=== PATIENT | male | born 1940 | race Caucasian/White ===

== ENCOUNTER → 2017-06-18 | Outpatient (CLI) | payer BC ==
--- NOTE | 2017-07-02 13:03 | CODING QUERY NO DIAGNOSIS ---
TREATMENT RENDERED WITHOUT A DIAGNOSIS : 41 To promote full compliance with coding requirements relating to patient care, physician participation is requested in all cases of telegraph operator uncertainty. Please assist us with providing a diagnosis/symptom for the test(s) below: A diagnosis/symptom was not documented on your Order. A valid diagnosis/symptom is required to bill all insurances. Please remember that we are unable to code a diagnosis of rule out, probable, possible, questionable, or suspected. Tests that require a diagnosis: DOS: 06/17/17 * URINE CULTURE CLEAN DIAGNOSIS: Provider Signature: Date: Thank you Suzette Harp Health Information Management Once completed, please kindly fax back to [phone] For questions please call [phone]
== END | disposition home or self-care (01) ==
LOC: C.LABSPEC 10:32
PROVIDERS: ATTEND Family Medicine
DX: Z01.89 Encounter for other specified special examinations (principal)

== ENCOUNTER → 2017-07-26 | Outpatient (CLI) | payer BC ==
--- NOTE | 2017-07-26 11:35 | DIAGNOSTIC IMAGING REPORT ---
RENAL ULTRASOUND HISTORY: RECURRENT PYELONEPHRITIS COMPARISON: Renal ultrasound 02/08/2015. FINDINGS: Right kidney: 10.3 cm. No hydronephrosis. Mild to moderate cortical atrophy with increased cortical echotexture consistent with medical renal disease. This remains unchanged. A 2.5 x 2.2 x 2.0 cm cyst at the lower pole. Left kidney: 8.8 cm. No hydronephrosis. Mild to moderate cortical atrophy with increased cortical echotexture consistent with medical renal disease. A left extrarenal pelvis remains unchanged. A 9 mm lower pole cyst. Bladder: Only the right ureteral jet was identified at this time. The prostate is enlarged measuring 4.8 cm. Mild bladder trabeculation is again noted. Miscellaneous: Hepatic cysts are again noted with the largest measuring 5.3 cm. IMPRESSION: 1. No significant change in the mild to moderate cortical renal atrophy and increased cortical echotexture consistent with medical renal disease. 2. Bilateral renal and hepatic cysts are again noted. Electronically signed by: Richard Lui M.D. 07/26/2017 11:33 AM Dictated Date/Time: 07/26/2017 11:30 AM
== END | disposition home or self-care (01) ==
LOC: C.ULTR 10:44
PROVIDERS: ATTEND Family Medicine
DX: N12 Tubulo-interstitial nephritis, not specified as acute or chronic (principal)

== ENCOUNTER 2018-12-02 10:10 | Inpatient (IN) ==
[2018-12-02] MEDS ORDERED: SODIUM CHLORIDE 0.9% 1000ML 1,000 ML IV ONE (10:20)
--- NOTE | 2018-12-02 10:41 | XRay Report ---
XR chest 1V portable CLINICAL HISTORY: Atypical chest pain COMPARISON STUDY: No previous studies for comparison. FINDINGS: The heart is at the upper limits of normal in size. There is no failure. There is no focal pulmonary consolidation. There are no pleural effusions. Slight prominence of the right paratracheal soft tissues, likely is secondary to ectatic/tortuous great vessels[ IMPRESSION: No active disease in the chest. Electronically signed by: Say Smalls M.D. 12/02/2018 10:39 AM
[2018-12-02 10:45] LABS: Basophils # (auto) 0.02 K/uL (0-0.2); Basophils % (auto) 0.3 %; Eosinophils # (auto) 0.17 K/uL (0-0.5); Hematocrit (blood only) 46.7 % (42-52); Hemoglobin 16.6 g/dL (14.0-18.0); Immature Granulocytes # (auto) 0.02 K/uL (0.00-0.02); Immature Granulocytes % (auto) 0.3 %; Lymphocytes # (auto) 1.21 K/uL (1.2-3.4); Lymphocytes % (auto) 21.1 %; Mean Corpuscular Hgb Conc 35.5 g/dL (32-36); Mean Corpuscular Volume 87.9 fL (80-100); Monocytes # (auto) 0.33 K/uL (0.11-0.59); Monocytes % (auto) 5.8 %; Neutrophils # (auto) 3.98 K/uL (1.4-6.5); Neutrophils % (auto) 69.5 %; Platelet Count 189 K/uL (130-400); RDW Standard Deviation 41.2 fL (36.4-46.3); Red Blood Count 5.31 M/uL (4.7-6.1); White Blood Count 5.73 K/uL (4.8-10.8)
[2018-12-02 10:55] LABS: Prothrombin Time 10.5 Seconds (9.0-12.0)
[2018-12-02 11:04] LABS: Albumin Level 3.9 gm/dl (3.4-5.0); BUN Creatinine Ratio 12.4 (10-20); Calcium 9.2 mg/dl (8.5-10.1); Creatinine Clr Calc Pharmacy 52.7 ml/min; Est GFR (African American) 67.9; Est GFR (Non-African American) 58.6; Magnesium 2.3 mg/dl (1.8-2.4)
[2018-12-02 11:09] LABS: Albumin Globulin Ratio 1.2 (0.9-2); Bilirubin,Total 0.9 mg/dl (0.2-1); Globulin 3.2 gm/dl (2.5-4.0); Phosphorus 2.2 mg/dl (2.5-4.9); Total Protein 7.1 gm/dl (6.4-8.2); Troponin I 0.027 ng/ml (0-0.045)
--- NOTE | 2018-12-02 11:46 | CT Scan Report ---
CT SCAN OF THE BRAIN WITHOUT IV CONTRAST CLINICAL HISTORY: Memory loss. COMPARISON STUDY: No priors. TECHNIQUE: Unenhanced axial CT scan of the brain is performed from the vertex to the skull base. A do se lowering technique was utilized adhering to the principles of ALARA. CT DOSE: 691.05 mGy.cm FINDINGS: Brain parenchyma: There are age-related involutional changes noting minimal subcortical and perivent ricular microangiopathic change. There is no hemorrhage, mass effect, or evidence of acute territoria l ischemia by CT criteria. Zuniga-white matter differentiation is preserved. No extra-axial fluid colle ction is seen. Ventricles, sulci, cisterns: Prominent secondary to involutional change. Intracranial vasculature: There is atherosclerotic calcification of the cavernous carotid and vertebr al arteries. Calvarium: Unremarkable. Sinuses and mastoids: There is trace mucosal thickening within the maxillary antra, as well as the fr ontal and ethmoid sinuses. Secretions are noted in the left sphenoid sinus. The mastoid air cells are well pneumatized. Orbits: The bony orbits are grossly intact. IMPRESSION: There is no hemorrhage, mass effect, or evidence of acute territorial ischemia by CT loretta bhat. Electronically signed by: Kobe Smart M.D. 12/02/2018 11:45 AM
[2018-12-02] MEDS ORDERED: ASPIRIN CHEW 324 MG PO STA (13:02)
[2018-12-02] MEDS ORDERED: Heparin IV Low Dose *NO* Bolus IV ONE (13:03)
[2018-12-02 13:20] LABS: Partial Thromboplastin Time 27.5 Seconds (21.0-31.0)
[2018-12-02] MEDS ORDERED: HEPARIN 25000 UNIT/500 ML D5W IV ONE (13:53)
--- NOTE | 2018-12-02 15:02 | History & Physical Report ---
Date of Service December 02, 2018 Assessment & Plan (1) Chest pain: Patient with exertional chest discomfort, relieved with rest. Elevated troponin at 0.137, EKG with no acute changes. Symptoms sound most consistent to stable angina. -Observation to PCU -Heparin gtt, standard -Trend troponin q 6 hours -Check 2D echocardiogram -Cardiology consultation - appreciate assistance with this case -Check Lipids and A1C for risk -NPO after midnight for possible cath -Nitro and Morphine PRN -Aspirin 81mg po daily Present on Admission?: Yes (2) BPH (benign prostatic hyperplasia): Chronic. No symptoms at present -Continue Tamsulosin and Dutasteride F/E/N - Heplock. Electrolytes WNL. AHA diet for dinner and NPO after midnight for possible cath Ppx - Heparin gtt as above Code - Full per discussion with patient. No alf heroics desired Dispo - Observation to PCU History of Present Illness Chief Complaint: chest pain Primary Care Provider: Warner Turner Raul Galvan is a pleasant 78yo C male with history of BPH presenting with chest pain. Patient is quite active, frequently rides his bike and goes for brisk walks. He developed CP 4-5 days ago which occurred with exertion. Pain is described as substernal aching/soreness, 2-3/10 in severity and relieved with rest. Discomfort is nonradiating, no associated nausea/vomiting/dizziness/diaphoresis/palpitations but does feel "woozy". No symptoms at rest but discomfort has been occurring with less exertion than before, he has limited his activity as a result. No prior history of CAD. No known coronary risk factors or family history. No prior stress testing or cardiac cath ER Course: ASA 324, Heparin gtt, NSS Allergies Allergy/AdvReac Type Severity Reaction Status Date / Time No Known Allergies Allergy Unverified 12/02/18 11:10 Home Medications Home Medications Medication Instructions Recorded Confirmed Type cholecalciferol (vitamin D3) 0 unit PO PM 12/02/18 12/02/18 History [Vitamin D3] cyanocobalamin (vitamin B-12) 0 mcg PO PM 12/02/18 12/02/18 History [Vitamin B-12] dutasteride 0.5 mg PO PM 12/02/18 12/02/18 History tamsulosin 0.4 mg PO PM 12/02/18 12/02/18 History vit A,C and R-sbiott-njifioez 1 tab PO PM 12/02/18 12/02/18 History [Ocuvite with Lutein] Past Med/Surg History Medical History Pyelonephritis (Chronic) Dysuria (Resolved) BPH (benign prostatic hyperplasia) History of wisdom tooth extraction Lyme disease Family History Other Family history non-contributory Social History Preferred Language: Palestinian Communication Ability: Effective Freight Associate Required: No Beliefs That Will Affect Care: None Current Living Situation: Spouse Other Information That Helps Us Care for You: No Feels Safe at Home: Yes Safety Concerns: Feels Safe At This Time Smoking Status: Former smoker Hx Alcohol Use: Yes Alcohol type: beer, wine and hard liquor Hx Substance Use: No Review of Systems Review of Systems: All systems reviewed & are unremarkable except as noted in HPI & below Physical Exam Physical Exam: General: patient resting comfortably, NAD, non-toxic in appearance, AA&O x 4 Skin: warm, dry, intact, no rashes or lesions HEENT: NC/AT, PERRL, EOMI, anicteric sclera, conjunctiva without injection, external ear normal to inspection and nontender, nares patent, moist mucus membranes, dentition intact, no oropharyngeal lesions, neck supple, trachea midline, no LAD, no thyromegaly, no JVD Heart: +S1/S2, regular, no m/r/g, mild reproducible pain with palpation of right rib Lungs: equal air entry bilaterally, no rales/rhonchi/wheezes Abd: +BS, soft, NT/ND, no masses/organomegaly/ascites Ext: warm, 2+ pulses in UE/LE bilaterally, no clubbing/cyanosis or edema Neuro: nonfocal, patient AA&O x 4, speech intact, no facial droop, moving all extremities on command with equal strength 5/5 Results & Data Vital Signs (Past 12 Hours) Vital Signs Temp Pulse Pulse Resp BP BP Pulse Ox 12/02/18 14:32 62 18 141/73 H 98 12/02/18 12:36 53 L 20 136/47 L 97 12/02/18 11:42 69 18 150/83 H 96 12/02/18 10:33 96 12/02/18 10:17 36.7 C 86 18 150/102 H 99 Laboratory Results Lab Results 12/02/18 12/02/1819 Range/Units 10:30 10:30 10:30 WBC 5.73 (4.8-10.8) K/uL RBC 5.31 (4.7-6.1) M/uL Hgb 16.6 (14.0-18.0) g/dL Hct 46.7 (42-52) % MCV 87.9 (80-100) fL MCH 31.3 (25-34) pg MCHC 35.5 (32-36) g/dL RDW Std Deviation 41.2 (36.4-46.3) fL RDW Coeff of Jessica 13.0 (11.5-14.5) % Plt Count 189 (130-400) K/uL MPV 11.0 H (7.4-10.4) fL Immature Gran % (Auto) 0.3 % Neut % (Auto) 69.5 % Lymph % (Auto) 21.1 % Spalding % (Auto) 5.8 % Eos % (Auto) 3.0 % Baso % (Auto) 0.3 % Immature Gran # (Auto) 0.02 (0.00-0.02) K/uL Neut # (Auto) 3.98 (1.4-6.5) K/uL Lymph # (Auto) 1.21 (1.2-3.4) K/uL Spalding # (Auto) 0.33 (0.11-0.59) K/uL Eos # (Auto) 0.17 (0-0.5) K/uL Baso # (Auto) 0.02 (0-0.2) K/uL PT 10.5 (9.0-12.0) Seconds INR 1.0 (0.9-1.1) APTT (21.0-31.0) Seconds PTT Ratio Sodium 138 (136-145) mmol/L Potassium 4.0 (3.5-5.1) mmol/L Chloride 106 (98-107) mmol/L Carbon Dioxide 27 (21-32) mmol/L Anion Gap 5.0 (3-11) BUN 15 (7-18) mg/dl Creatinine 1.19 (0.6-1.4) mg/dl Est Cr Clr Drug Dosing 52.7 ml/min Est GFR ( Amer) 67.9 Est GFR (Non-Af Amer) 58.6 BUN/Creatinine Ratio 12.4 (10-20) Glucose 103 H (70-99) mg/dl Calcium 9.2 (8.5-10.1) mg/dl Phosphorus 2.2 L (2.5-4.9) mg/dl Magnesium 2.3 (1.8-2.4) mg/dl Total Bilirubin 0.9 (0.2-1) mg/dl AST 14 L (15-37) U/L ALT 21 (12-78) U/L Alkaline Phosphatase 61 (45-117) U/L Troponin I 0.027 (0-0.045) ng/ml Total Protein 7.1 (6.4-8.2) gm/dl Albumin 3.9 (3.4-5.0) gm/dl Globulin 3.2 (2.5-4.0) gm/dl Albumin/Globulin Ratio 1.2 (0.9-2) Lipase 109 (73-393) U/L 12/02/18 12/02/18 12/02/18 Range/Units 10:30 12:01 18:51 WBC (4.8-10.8) K/uL RBC (4.7-6.1) M/uL Hgb (14.0-18.0) g/dL Hct (42-52) % MCV (80-100) fL MCH (25-34) pg MCHC (32-36) g/dL RDW Std Deviation (36.4-46.3) fL RDW Coeff of Jessica (11.5-14.5) % Plt Count (130-400) K/uL MPV (7.4-10.4) fL Immature Gran % (Auto) % Neut % (Auto) % Lymph % (Auto) % Spalding % (Auto) % Eos % (Auto) % Baso % (Auto) % Immature Gran # (Auto) (0.00-0.02) K/uL Neut # (Auto) (1.4-6.5) K/uL Lymph # (Auto) (1.2-3.4) K/uL Spalding # (Auto) (0.11-0.59) K/uL Eos # (Auto) (0-0.5) K/uL Baso # (Auto) (0-0.2) K/uL PT (9.0-12.0) Seconds INR (0.9-1.1) APTT 27.5 (21.0-31.0) Seconds PTT Ratio 1.0 Sodium (136-145) mmol/L Potassium (3.5-5.1) mmol/L Chloride (98-107) mmol/L Carbon Dioxide (21-32) mmol/L Anion Gap (3-11) BUN (7-18) mg/dl Creatinine (0.6-1.4) mg/dl Est Cr Clr Drug Dosing ml/min Est GFR ( Amer) Est GFR (Non-Af Amer) BUN/Creatinine Ratio (10-20) Glucose (70-99) mg/dl Calcium (8.5-10.1) mg/dl Phosphorus (2.5-4.9) mg/dl Magnesium (1.8-2.4) mg/dl Total Bilirubin (0.2-1) mg/dl AST (15-37) U/L ALT (12-78) U/L Alkaline Phosphatase (45-117) U/L Troponin I 0.137 H* 0.389 H* (0-0.045) ng/ml Total Protein (6.4-8.2) gm/dl Albumin (3.4-5.0) gm/dl Globulin (2.5-4.0) gm/dl Albumin/Globulin Ratio (0.9-2) Lipase (73-393) U/L Diagnostic Findings CT SCAN OF THE BRAIN WITHOUT IV CONTRAST CLINICAL HISTORY: Memory loss. COMPARISON STUDY: No priors. TECHNIQUE: Unenhanced axial CT scan of the brain is performed from the vertex to the skull base. A dose lowering technique was utilized adhering to the principles of ALARA. CT DOSE: 691.05 mGy.cm FINDINGS: Brain parenchyma: There are age-related involutional changes noting minimal subcortical and periventricular microangiopathic change. There is no hemorrhage, mass effect, or evidence of acute territorial ischemia by CT criteria. Zuniga- white matter differentiation is preserved. No extra-axial fluid collection is seen. Ventricles, sulci, cisterns: Prominent secondary to involutional change. Intracranial vasculature: There is atherosclerotic calcification of the cavernous carotid and vertebral arteries. Calvarium: Unremarkable. Sinuses and mastoids: There is trace mucosal thickening within the maxillary antra, as well as the frontal and ethmoid sinuses. Secretions are noted in the left sphenoid sinus. The mastoid air cells are well pneumatized. Orbits: The bony orbits are grossly intact. IMPRESSION: There is no hemorrhage, mass effect, or evidence of acute territorial ischemia by CT criteria. Electronically signed by: Kobe Smart M.D. 12/02/2018 11:45 AM Dictated: 12/02/18 1142 Transcribed: 12/02/18 114 XR chest 1V portable CLINICAL HISTORY: Atypical chest pain COMPARISON STUDY: No previous studies for comparison. FINDINGS: The heart is at the upper limits of normal in size. There is no failure. There is no focal pulmonary consolidation. There are no pleural effusions. Slight prominence of the right paratracheal soft tissues, likely is secondary to ectatic/tortuous great vessels[ IMPRESSION: No active disease in the chest. Electronically signed by: Say Smalls M.D. 12/02/2018 10:39 AM Dictated: 12/02/18 1039 Transcribed: 12/02/18 1039 2D echo with normal LV function EF of 60-65%, Grade I diastolic dysfunction, Mild AR, normal RVSP, mild aortic root dilation ECG Additional Comments: The study shows SR with 1st degree AV block, KU=722, QRS=88, AXp=670, no acute ischemic changes Code Status & VTE Plan Code Status FULL VTE Prophylaxis Plan VTE Prophylaxis will be ordered: Yes PG Care Time/CCT Total # of Minutes Spent Total Time Spent with Patient: Total time spent is greater than 50% in coordination of care (as documented) at patient's floor/unit and/or counseling patient:
[2018-12-02] MEDS ORDERED: ONDANSETRON INJ 2 MG/ML 2 ML VIAL IV PRN (16:46)
[2018-12-02] MEDS ORDERED: NITROGLYCERIN SL 0.4 MG/TAB TAB SL PRN (16:46)
[2018-12-02] MEDS ORDERED: MoRPHine SULFATE 2 MG/ML CARP IV PRN (16:46)
[2018-12-02] MEDS ORDERED: Heparin IV Standard *NO* Bolus IV ONE (16:46)
[2018-12-02] MEDS: Heparin Adult LOW DOSE Wt-Based Dextrose 5% 25,000 units/500 mL IV SCH (17:13)
--- NOTE | 2018-12-02 19:52 | Emergency Department Note ---
Entered by Toña Romo acting as a scribe for History of Present Illness General Chief complaint: Chest Pain Stated complaint: CHEST PAIN ON EXERCISE Time Seen by Provider: 12/02/18 10:19 Source: patient and family History of Present Illness Provider complaint: chest pain Onset (ago): week(s) 2 Location: chest ("superficial") Pain Consistency: + intermittent Maximum Pain Intensity: 0 Exacerbated By: + movement (brisk walks, riding stationary bike) Associated symptoms: + confusion and + other (depression); no cough and no fever/chills The patient is a 78 year old male who presents to the ED with complaints of intermittent chest pain starting 2 weeks ago. The patient states that the chest pain feels superficial on his pectoral muscles, not internal. Reports associated SOB and sweating. The patient states that the pain occurs when he takes brisk walks or rides the stationary bike. The patient notes that he is not in any current pain. Per , the patient had Lyme disease 1 month ago which has caused him to become more confused and depressed than usual. The patient denies fever, chills and cough. Home Medications Home Medications Medication Instructions Recorded Confirmed Type cholecalciferol (vitamin D3) 0 unit PO PM 12/02/18 12/02/18 History [Vitamin D3] cyanocobalamin (vitamin B-12) 0 mcg PO PM 12/02/18 12/02/18 History [Vitamin B-12] dutasteride 0.5 mg PO PM 12/02/18 12/02/18 History tamsulosin 0.4 mg PO PM 12/02/18 12/02/18 History vit A,C and A-myffjl-zoswhmun 1 tab PO PM 12/02/18 12/02/18 History [Ocuvite with Lutein] Allergies Allergy/AdvReac Type Severity Reaction Status Date / Time No Known Allergies Allergy Unverified 12/02/18 11:10 Past Med/Surg History Medical History Pyelonephritis (Chronic) Dysuria (Resolved) BPH (benign prostatic hyperplasia) History of wisdom tooth extraction Lyme disease Family History Other Family history non-contributory Social History Preferred Language: [place] Communication Ability: Effective 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 and A total of 10 systems reviewed and were otherwise negative Physical Exam Vital Signs Vital Signs - 24 hr 12/02/18 10:17 12/02/18 10:24 12/02/18 10:26 Temperature 36.7 C Temperature Source Oral Sepsis Recent Fever Within 48 Hours No Sepsis Action Taken by Nursing No Action Required Pulse Rate 86 72 77 Pulse Rate [Left Finger] Pulse Rate from SpO2 Sensor 75 Respiratory Rate 18 22 15 Blood Pressure 150/102 H 161/88 H Blood Pressure [Left Arm] Blood Pressure Mean 118 112 Blood Pressure Mean [Left Arm] Blood Pressure Position Sitting Pulse Oximetry 99 98 Oxygen Delivery Method Room Air 12/02/18 10:30 12/02/18 10:31 12/02/18 10:33 Temperature Temperature Source Sepsis Recent Fever Within 48 Hours Sepsis Action Taken by Nursing Pulse Rate 60 65 Pulse Rate [Left Finger] Pulse Rate from SpO2 Sensor 59 L 69 Respiratory Rate 17 16 Blood Pressure 152/78 H Blood Pressure [Left Arm] Blood Pressure Mean 102 Blood Pressure Mean [Left Arm] Blood Pressure Position Pulse Oximetry 95 96 96 Oxygen Delivery Method Room Air 12/02/18 10:40 12/02/18 10:50 12/02/18 11:00 Temperature Temperature Source Sepsis Recent Fever Within 48 Hours Sepsis Action Taken by Nursing Pulse Rate 77 57 L 58 L Pulse Rate [Left Finger] Pulse Rate from SpO2 Sensor 77 58 L 59 L Respiratory Rate 23 16 19 Blood Pressure 147/58 H Blood Pressure [Left Arm] Blood Pressure Mean 87 Blood Pressure Mean [Left Arm] Blood Pressure Position Pulse Oximetry 98 99 99 Oxygen Delivery Method 12/02/18 11:01 12/02/18 11:18 12/02/18 11:20 Temperature Temperature Source Sepsis Recent Fever Within 48 Hours Sepsis Action Taken by Nursing Pulse Rate 57 L 59 L 67 Pulse Rate [Left Finger] Pulse Rate from SpO2 Sensor 57 L 59 L 67 Respiratory Rate 18 20 16 Blood Pressure Blood Pressure [Left Arm] Blood Pressure Mean Blood Pressure Mean [Left Arm] Blood Pressure Position Pulse Oximetry 99 98 97 Oxygen Delivery Method 12/02/18 11:37 12/02/18 11:38 12/02/18 11:40 Temperature Temperature Source Sepsis Recent Fever Within 48 Hours Sepsis Action Taken by Nursing Pulse Rate 71 77 56 L Pulse Rate [Left Finger] Pulse Rate from SpO2 Sensor 71 74 57 L Respiratory Rate 23 20 16 Blood Pressure 150/83 H Blood Pressure [Left Arm] Blood Pressure Mean 105 Blood Pressure Mean [Left Arm] Blood Pressure Position Pulse Oximetry 96 96 98 Oxygen Delivery Method 12/02/18 11:42 12/02/18 11:50 12/02/18 12:00 Temperature Temperature Source Sepsis Recent Fever Within 48 Hours Sepsis Action Taken by Nursing Pulse Rate 55 L 53 L Pulse Rate [Left Finger] 69 Pulse Rate from SpO2 Sensor 54 L 53 L Respiratory Rate 18 20 15 Blood Pressure Blood Pressure [Left Arm] 150/83 H Blood Pressure Mean Blood Pressure Mean [Left Arm] 105 Blood Pressure Position Pulse Oximetry 96 97 96 Oxygen Delivery Method Room Air 12/02/18 12:01 12/02/18 12:10 12/02/18 12:20 Temperature Temperature Source Sepsis Recent Fever Within 48 Hours Sepsis Action Taken by Nursing Pulse Rate 62 66 60 Pulse Rate [Left Finger] Pulse Rate from SpO2 Sensor 59 L 63 57 L Respiratory Rate 18 16 20 Blood Pressure 131/68 Blood Pressure [Left Arm] Blood Pressure Mean 89 Blood Pressure Mean [Left Arm] Blood Pressure Position Pulse Oximetry 97 97 97 Oxygen Delivery Method 12/02/18 12:33 12/02/18 12:35 12/02/18 12:36 Temperature Temperature Source Sepsis Recent Fever Within 48 Hours Sepsis Action Taken by Nursing Pulse Rate 53 L 52 L Pulse Rate [Left Finger] 53 L Pulse Rate from SpO2 Sensor 54 L Respiratory Rate 13 16 20 Blood Pressure 136/47 L Blood Pressure [Left Arm] 136/47 L Blood Pressure Mean 76 Blood Pressure Mean [Left Arm] 76 Blood Pressure Position Pulse Oximetry 97 97 Oxygen Delivery Method Room Air 12/02/18 12:40 12/02/18 12:50 12/02/18 13:00 Temperature Temperature Source Sepsis Recent Fever Within 48 Hours Sepsis Action Taken by Nursing Pulse Rate 56 L 55 L 60 Pulse Rate [Left Finger] Pulse Rate from SpO2 Sensor 55 L 54 L 58 L Respiratory Rate 12 13 21 Blood Pressure 134/76 Blood Pressure [Left Arm] Blood Pressure Mean 95 Blood Pressure Mean [Left Arm] Blood Pressure Position Pulse Oximetry 96 97 98 Oxygen Delivery Method 12/02/18 13:01 12/02/18 13:10 12/02/18 13:20 Temperature Temperature Source Sepsis Recent Fever Within 48 Hours Sepsis Action Taken by Nursing Pulse Rate 53 L 60 64 Pulse Rate [Left Finger] Pulse Rate from SpO2 Sensor 55 L 63 62 Respiratory Rate 16 14 18 Blood Pressure Blood Pressure [Left Arm] Blood Pressure Mean Blood Pressure Mean [Left Arm] Blood Pressure Position Pulse Oximetry 98 98 97 Oxygen Delivery Method 12/02/18 13:30 12/02/18 13:31 12/02/18 14:30 Temperature Temperature Source Sepsis Recent Fever Within 48 Hours Sepsis Action Taken by Nursing Pulse Rate 55 L 58 L Pulse Rate [Left Finger] Pulse Rate from SpO2 Sensor 55 L 58 L Respiratory Rate 16 18 Blood Pressure 142/72 H 141/73 H Blood Pressure [Left Arm] Blood Pressure Mean 95 95 Blood Pressure Mean [Left Arm] Blood Pressure Position Pulse Oximetry 98 97 Oxygen Delivery Method 12/02/18 14:31 12/02/18 14:32 12/02/18 14:40 Temperature Temperature Source Sepsis Recent Fever Within 48 Hours Sepsis Action Taken by Nursing Pulse Rate 60 62 Pulse Rate [Left Finger] 62 Pulse Rate from SpO2 Sensor 61 63 Respiratory Rate 12 18 16 Blood Pressure Blood Pressure [Left Arm] 141/73 H Blood Pressure Mean Blood Pressure Mean [Left Arm] 95 Blood Pressure Position Pulse Oximetry 98 98 99 Oxygen Delivery Method Room Air 12/02/18 14:50 Temperature Temperature Source Sepsis Recent Fever Within 48 Hours Sepsis Action Taken by Nursing Pulse Rate 60 Pulse Rate [Left Finger] Pulse Rate from SpO2 Sensor 56 L Respiratory Rate 15 Blood Pressure Blood Pressure [Left Arm] Blood Pressure Mean Blood Pressure Mean [Left Arm] Blood Pressure Position Pulse Oximetry 99 Oxygen Delivery Method GENERAL: Awake, alert, well-appearing, in no distress HENT: Normocephalic, atraumatic. Oropharynx unremarkable. Mucous membranes dry. EYES: Normal conjunctiva. Sclera non-icteric. NECK: Supple. No nuchal rigidity. FROM. No JVD. RESPIRATORY: Clear to auscultation bilaterally. CARDIAC: Regular rate, normal rhythm. Extremities warm and well perfused. Pulses equal. ABDOMEN: Soft, non-distended. No tenderness to palpation. No rebound or guarding. No masses. RECTAL: Deferred. MUSCULOSKELETAL: Chest examination reveals no tenderness. The back is symmetrical on inspection without obvious abnormality. There is no CVA tenderness to palpation. No joint edema. LOWER EXTREMITIES: Calves are equal size bilaterally and non-tender. No edema. No discoloration. NEURO: Normal sensorium. No sensory or motor deficits noted. SKIN: No rash or jaundice noted. Course 1037: Past medical records reviewed. The patient was evaluated in room B12. A complete history and physical exam was performed. 1246: I discussed the patient's case with MURRAY Solitario. He recommends an echo. 1302: I discussed the patient's case with Dr. Singh [facility] Hospitalist. She will manage the patient for further management. Consultations Consultation #1: I discussed the patient's case with MURRAY Solitario. He recommends an echo. Time: 12:46 Consultation #2: I discussed the patient's case with Dr. Singh [facility] Hospitalist. She will evaluate the patient for further management. Time: 13:02 Administered Medications Heparin Sodium/Dextrose (Heparin Sodium/Dextrose) 25,000 units in 500 mls @ 17 mls/hr IV .Q24H AMAURI; Protocol Stop: 01/01/19 16:59 Last Titration: 12/02/18 21:39 Dose: 1,000 units/hr, 20 mls/hr Documented by: [id number] Cosigned by: [id number] Admin: 12/02/18 17:13 Dose: 850 units/hr, 17 mls/hr Documented by: [id number] Cosigned by: [id number] Tamsulosin HCl (Flomax) 0.4 mg PO PM AMAURI Stop: 01/01/19 20:59 Last Admin: 12/02/18 20:35 Dose: Not Given Documented by: [id number] Discontinued Medications Aspirin (Aspirin) 324 mg PO NOW STA Stop: 12/02/18 13:03 Last Admin: 12/02/18 14:29 Dose: 324 mg Documented by: [id number] Heparin Sodium/Dextrose () 1 ea IV ONE ONE; Protocol Stop: 12/02/18 13:04 Last Admin: 12/02/18 14:31 Dose: Not Given Documented by: [id number] Heparin Sodium/Dextrose (Heparin Sodium/Dextrose) Confirm Administered Dose 25,000 units IV .STK-MED ONE Stop: 12/02/18 13:54 Last Admin: 12/02/18 14:28 Dose: 850 units Documented by: [id number] Cosigned by: [id number] Sodium Chloride (Nss 1000ml) 1,000 mls @ 999 mls/hr IV .Q1H1M ONE Stop: 12/02/18 11:20 Last Infusion: 12/02/18 11:23 Dose: 0 mls/hr Documented by: [id number] Admin: 12/02/18 10:38 Dose: 999 mls/hr Documented by: [id number] Medical Decision Making Differential Diagnosis Differential diagnosis: Etiologies such as shingles, musculoskeletal pain, pericarditis, myocarditis, cardiac ischemia, pericardial tamponade, pneumonia, pneumothorax, pleural effusion, hemothorax, pleurisy, aortic pathology, pulmonary embolism, intra- abdominal process, as well as others were considered. Medical Records Attestation: I reviewed the patient's medical records. Home Medications Current Medication List: was personally reviewed by me Laboratory Data Attestation: I reviewed the patient's lab results. Result diagrams: 12/02/18 10:30 12/02/18 10:30 Lab Results 12/02/18 12/02/18 12/02/18 Range/Units 10:30 10:30 10:30 WBC 5.73 (4.8-10.8) K/uL RBC 5.31 (4.7-6.1) M/uL Hgb 16.6 (14.0-18.0) g/dL Hct 46.7 (42-52) % MCV 87.9 (80-100) fL MCH 31.3 (25-34) pg MCHC 35.5 (32-36) g/dL RDW Std Deviation 41.2 (36.4-46.3) fL RDW Coeff of Jessica 13.0 (11.5-14.5) % Plt Count 189 (130-400) K/uL MPV 11.0 H (7.4-10.4) fL Immature Gran % (Auto) 0.3 % Neut % (Auto) 69.5 % Lymph % (Auto) 21.1 % [place] % (Auto) 5.8 % Eos % (Auto) 3.0 % Baso % (Auto) 0.3 % Immature Gran # (Auto) 0.02 (0.00-0.02) K/uL Neut # (Auto) 3.98 (1.4-6.5) K/uL Lymph # (Auto) 1.21 (1.2-3.4) K/uL [place] # (Auto) 0.33 (0.11-0.59) K/uL Eos # (Auto) 0.17 (0-0.5) K/uL Baso # (Auto) 0.02 (0-0.2) K/uL PT 10.5 (9.0-12.0) Seconds INR 1.0 (0.9-1.1) APTT (21.0-31.0) Seconds PTT Ratio Sodium 138 (136-145) mmol/L Potassium 4.0 (3.5-5.1) mmol/L Chloride 106 (98-107) mmol/L Carbon Dioxide 27 (21-32) mmol/L Anion Gap 5.0 (3-11) BUN 15 (7-18) mg/dl Creatinine 1.19 (0.6-1.4) mg/dl Est Cr Clr Drug Dosing 52.7 ml/min Est GFR ( Amer) 67.9 Est GFR (Non-Af Amer) 58.6 BUN/Creatinine Ratio 12.4 (10-20) Glucose 103 H (70-99) mg/dl Calcium 9.2 (8.5-10.1) mg/dl Phosphorus 2.2 L (2.5-4.9) mg/dl Magnesium 2.3 (1.8-2.4) mg/dl Total Bilirubin 0.9 (0.2-1) mg/dl AST 14 L (15-37) U/L ALT 21 (12-78) U/L Alkaline Phosphatase 61 (45-117) U/L Troponin I 0.027 (0-0.045) ng/ml Total Protein 7.1 (6.4-8.2) gm/dl Albumin 3.9 (3.4-5.0) gm/dl Globulin 3.2 (2.5-4.0) gm/dl Albumin/Globulin Ratio 1.2 (0.9-2) Lipase 109 (73-393) U/L 12/02/18 12/02/18 Range/Units 10:30 12:01 WBC (4.8-10.8) K/uL RBC (4.7-6.1) M/uL Hgb (14.0-18.0) g/dL Hct (42-52) % MCV (80-100) fL MCH (25-34) pg MCHC (32-36) g/dL RDW Std Deviation (36.4-46.3) fL RDW Coeff of Jessica (11.5-14.5) % Plt Count (130-400) K/uL MPV (7.4-10.4) fL Immature Gran % (Auto) % Neut % (Auto) % Lymph % (Auto) % [place] % (Auto) % Eos % (Auto) % Baso % (Auto) % Immature Gran # (Auto) (0.00-0.02) K/uL Neut # (Auto) (1.4-6.5) K/uL Lymph # (Auto) (1.2-3.4) K/uL [place] # (Auto) (0.11-0.59) K/uL Eos # (Auto) (0-0.5) K/uL Baso # (Auto) (0-0.2) K/uL PT (9.0-12.0) Seconds INR (0.9-1.1) APTT 27.5 (21.0-31.0) Seconds PTT Ratio 1.0 Sodium (136-145) mmol/L Potassium (3.5-5.1) mmol/L Chloride (98-107) mmol/L Carbon Dioxide (21-32) mmol/L Anion Gap (3-11) BUN (7-18) mg/dl Creatinine (0.6-1.4) mg/dl Est Cr Clr Drug Dosing ml/min Est GFR ( Amer) Est GFR (Non-Af Amer) BUN/Creatinine Ratio (10-20) Glucose (70-99) mg/dl Calcium (8.5-10.1) mg/dl Phosphorus (2.5-4.9) mg/dl Magnesium (1.8-2.4) mg/dl Total Bilirubin (0.2-1) mg/dl AST (15-37) U/L ALT (12-78) U/L Alkaline Phosphatase (45-117) U/L Troponin I 0.137 H* (0-0.045) ng/ml Total Protein (6.4-8.2) gm/dl Albumin (3.4-5.0) gm/dl Globulin (2.5-4.0) gm/dl Albumin/Globulin Ratio (0.9-2) Lipase (73-393) U/L Imaging Data Radiologist's Impression: Radiology results as stated below per my review and the radiologist's interpretation: XR chest 1V portable CLINICAL HISTORY: Atypical chest pain COMPARISON STUDY: No previous studies for comparison. FINDINGS: The heart is at the upper limits of normal in size. There is no failure. There is no focal pulmonary consolidation. There are no pleural effusions. Slight prominence of the right paratracheal soft tissues, likely is secondary to ectatic/tortuous great vessels[ IMPRESSION: No active disease in the chest. Electronically signed by: Say Smalls M.D. 12/02/2018 10:[address] SCAN OF THE BRAIN WITHOUT IV CONTRAST CLINICAL HISTORY: Memory loss. COMPARISON STUDY: No priors. TECHNIQUE: Unenhanced axial CT scan of the brain is performed from the vertex to the skull base. A dose lowering technique was utilized adhering to the principles of ALARA. CT DOSE: 691.05 mGy.cm FINDINGS: Brain parenchyma: There are age-related involutional changes noting minimal subcortical and periventricular microangiopathic change. There is no hemorrhage, mass effect, or evidence of acute territorial ischemia by CT criteria. Zuniga- white matter differentiation is preserved. No extra-axial fluid collection is s een. Ventricles, sulci, cisterns: Prominent secondary to involutional change. Intracranial vasculature: There is atherosclerotic calcification of the cavernous carotid and vertebral arteries. Calvarium: Unremarkable. Sinuses and mastoids: There is trace mucosal thickening within the maxillary an tra, as well as the frontal and ethmoid sinuses. Secretions are noted in the left sphenoid sinus. The mastoid air cells are well pneumatized. Orbits: The bony orbits are grossly intact. IMPRESSION: There is no hemorrhage, mass effect, or evidence of acute territorial ischemia by CT criteria. Electronically signed by: Kobe Smart M.D. 12/02/2018 11:45 AM ECG Data Attestation: I personally reviewed and interpreted this ECG as follows: Indication: chest pain Rate (beats per minute): 73 Rhythm: sinus rhythm Findings: + other (LVH), + 1st degree AV block and + nonspecific-ST abn Blood Pressure Blood Pressure Findings: Elevated blood pressure Blood Pressure Disposition: further management by hospitalist LALO Snow The patient is a pleasant 78 y/o gentleman with a pmhx of BPH who presents to the emergency department with several weeks of exertional CP when riding exercise and his outdoor bike per HPI. Patient reports he has found the patient pushing his bike on the road because of his symptoms, which never used to happen. This morning the patient reports having another episode riding his bike at 10am that improved with cessation of exertion. On arrival the patient is in NAD, AFVSS. Patient denies CP or SOB at this time. He has impaired memory where he could not remember if he traveled to [place] last month or last year. Patient's reports this is his recent baseline. EKG with LVH and slight slurring ST segment laterally but otherwise without overt acute ischemia. CXR negative. CT head negative for acute process, ordered for patient's recent history of memory impairment in the setting of being treated for Lyme disease. WBC, H/H, platelets wnl. Chemistry without acidosis. LFTs unremarkable. Initial troponin wnl but detectable with delta 90 troponin elevated at 0.137, which suggests patient's sx are ischemic. Findings reviewed with patient and . He denies h/o of GI bleeding/recent bloody or black stools. Agreeable for a dmission. Case d/w Dr. Villanueva, [facility] Cardiology, who agrees with ordered ASA and heparin gtt. He will order echo and will be available for consultation for admitting team. Case was discussed with Dr. Roblero, [facility] hospitalist, who will evaluate the patient for admission. Impression & Plan Non-STEMI (non-ST elevated myocardial infarction), Exertional chest pain Critical Care Time Critical Care Time: Yes Total Critical Care Time: 40 I have personally spent greater than 40 minutes of critical care time in the direct management of this patient. This includes bedside care, interpretation of diagnostic studies, and testing, discussion with consultants, patient, and family members, and other required patient management activities. This 40 minutes is in excess of all separately billable procedures. Discharge Plan Visit Data *Final* Discharge Date/Time: 12/02/18 16:03 Chief Complaint: Chest Pain Stated Complaint: CHEST PAIN ON EXERCISE ED Provider: Michele Majano Discharge Problem: Non-STEMI (non-ST elevated myocardial infarction), Exertional chest pain Patient Disposition: Admitted As Inpatient Discharge Instructions Interventions: ED Discharge Assessment Last Done: 12/02/18 16:03 The scribe's documentation has been prepared under my direction and personally reviewed by me in its entirety. I confirm that the note above accurately reflects all work, treatment, procedures, and medical decision making performed by me.
[2018-12-02] MEDS: TAMSULOSIN HCL 0.4 MG CAP PO SCH (20:35)
[2018-12-02 21:21] LABS: Partial Thromboplastin Ratio 1.4; Partial Thromboplastin Time 37.9 Seconds (21.0-31.0)
[2018-12-02] MEDS ORDERED: HEPARIN IV BOLUS 4,500 UNITS in SYRINGE 0 ML IV ONE (22:00)
[2018-12-02] MEDS: DUTASTERIDE ~ ORDER AWAITING ACTION SCH (23:00)
[2018-12-03 04:07] LABS: Basophils # (auto) 0.03 K/uL (0-0.2); Basophils % (auto) 0.4 %; Eosinophils # (auto) 0.31 K/uL (0-0.5); Eosinophils % (auto) 4.4 %; Hematocrit (blood only) 43.3 % (42-52); Hemoglobin 15.4 g/dL (14.0-18.0); Immature Granulocytes # (auto) 0.02 K/uL (0.00-0.02); Immature Granulocytes % (auto) 0.3 %; Lymphocytes # (auto) 1.87 K/uL (1.2-3.4); Lymphocytes % (auto) 26.7 %; Mean Corpuscular Hgb Conc 35.6 g/dL (32-36); Mean Corpuscular Volume 89.1 fL (80-100); Mean Platelet Volume 11.1 fL (7.4-10.4); Monocytes # (auto) 0.44 K/uL (0.11-0.59); Monocytes % (auto) 6.3 %; Neutrophils # (auto) 4.34 K/uL (1.4-6.5); Neutrophils % (auto) 61.9 %; Platelet Count 194 K/uL (130-400); RDW Coefficient of Variation 12.9 % (11.5-14.5); RDW Standard Deviation 41.7 fL (36.4-46.3); Red Blood Count 4.86 M/uL (4.7-6.1); White Blood Count 7.01 K/uL (4.8-10.8)
[2018-12-03 04:25] LABS: BUN Creatinine Ratio 14.3 (10-20); Calcium 8.7 mg/dl (8.5-10.1); Creatinine Clr Calc Pharmacy 53.3 ml/min; Est GFR (African American) 69.3; Est GFR (Non-African American) 59.8
[2018-12-03 04:27] LABS: Partial Thromboplastin Ratio 3.5
[2018-12-03 04:40] LABS: Partial Thromboplastin Time 93.7 Seconds (21.0-31.0)
[2018-12-03 06:32] LABS: Estimated Average Glucose 100 mg/dl; Hemoglobin A1C 5.1 % (4.5-5.6)
[2018-12-03] MEDS: DUTASTERIDE ~ ORDER AWAITING ACTION SCH ×2 (08:37→14:53)
[2018-12-03] MEDS ORDERED: ASPIRIN 81 MG ECTAB PO SCH (09:00)
[2018-12-03] MEDS ORDERED: ATORVASTATIN 40 MG TAB PO SCH (09:15)
[2018-12-03] MEDS ORDERED: NiCARDipine HCL INJ 2.5 MG/ML 10 ML AMP ONE (10:06)
[2018-12-03] MEDS ORDERED: HEPARIN (PORCINE) 1000 UNIT/ML 10 ML (CATH LAB USE ONLY) ONE (10:06)
[2018-12-03] MEDS ORDERED: MIDAZOLAM HCL 1 MG/ML 2ML VIAL ONE (10:06)
[2018-12-03] MEDS ORDERED: fentaNYL citrate 100 MCG/2 ML VIAL ONE (10:06)
[2018-12-03] MEDS ORDERED: NITROGLYCERIN/D5W 100MCG/ML 20ML SYR ONE (10:07)
--- NOTE | 2018-12-03 10:10 | Pre Anesthesia Assessment ---
Date of Service December 03, 2018 Pre Sedation Assessment Vital Signs Temp Pulse Pulse Resp BP BP BP 12/03/18 07:20 36.7 C 58 L 18 134/69 12/03/18 03:33 36.5 C 55 L 16 126/62 12/02/18 23:48 37.0 C 61 16 154/61 H 12/02/18 19:57 36.7 C 56 L 17 133/54 L 12/02/18 18:53 60 12/02/18 16:41 36.7 C 63 17 186/74 H 12/02/18 16:00 62 16 151/66 H 12/02/18 15:50 58 L 22 12/02/18 15:40 60 22 12/02/18 15:31 55 L 14 12/02/18 15:30 60 13 136/67 12/02/18 15:20 56 L 17 12/02/18 15:10 54 L 17 12/02/18 15:00 57 L 21 135/61 12/02/18 14:50 60 15 12/02/18 14:40 62 16 12/02/18 14:32 62 18 141/73 H 12/02/18 14:31 60 12 12/02/18 14:30 141/73 H 12/02/18 13:31 58 L 18 142/72 H 12/02/18 13:30 55 L 16 12/02/18 13:20 64 18 12/02/18 13:10 60 14 12/02/18 13:01 53 L 16 12/02/18 13:00 60 21 134/76 12/02/18 12:50 55 L 13 12/02/18 12:40 56 L 12 12/02/18 12:36 53 L 20 136/47 L 12/02/18 12:35 52 L 16 136/47 L 12/02/18 12:33 53 L 13 12/02/18 12:20 60 20 12/02/18 12:10 66 16 12/02/18 12:01 62 18 131/68 12/02/18 12:00 53 L 15 12/02/18 11:50 55 L 20 12/02/18 11:42 69 18 150/83 H 12/02/18 11:40 56 L 16 12/02/18 11:38 77 20 150/83 H 12/02/18 11:37 71 23 07/16/19 11:20 67 16 12/02/18 11:18 59 L 20 12/02/18 11:01 57 L 18 12/02/18 11:00 58 L 19 147/58 H 12/02/18 10:50 57 L 16 12/02/18 10:40 77 23 12/02/18 10:33 12/02/18 10:31 65 16 12/02/18 10:30 60 17 152/78 H 12/02/18 10:26 77 15 12/02/18 10:24 72 22 161/88 H 12/02/18 10:17 36.7 C 86 18 150/102 H Pulse Ox 12/03/18 07:20 97 12/03/18 03:33 97 12/02/18 23:48 96 12/02/18 19:57 96 12/02/18 18:53 12/02/18 16:41 97 12/02/18 16:00 97 12/02/18 15:50 97 12/02/18 15:40 96 12/02/18 15:31 97 12/02/18 15:30 97 12/02/18 15:20 97 12/02/18 15:10 99 12/02/18 15:00 98 12/02/18 14:50 99 12/02/18 14:40 99 12/02/18 14:32 98 12/02/18 14:31 98 12/02/18 14:30 12/02/18 13:31 97 12/02/18 13:30 98 12/02/18 13:20 97 12/02/18 13:10 98 12/02/18 13:01 98 12/02/18 13:00 98 12/02/18 12:50 97 12/02/18 12:40 96 12/02/18 12:36 97 12/02/18 12:35 97 12/02/18 12:33 12/02/18 12:20 97 12/02/18 12:10 97 12/02/18 12:01 97 12/02/18 12:00 96 12/02/18 11:50 97 12/02/18 11:42 96 12/02/18 11:40 98 12/02/18 11:38 96 12/02/18 11:37 96 12/02/18 11:20 97 12/02/18 11:18 98 12/02/18 11:01 99 12/02/18 11:00 99 12/02/18 10:50 99 12/02/18 10:40 98 12/02/18 10:33 96 12/02/18 10:31 96 12/02/18 10:30 95 12/02/18 10:26 12/02/18 10:24 98 12/02/18 10:17 99 Cardiovascular + regular rate Respiratory + respiratory effort normal Pre-Sedation Airway Assessment Smoking Status: Former smoker Hx Sleep Apnea: No Hx Difficult Intubation: No Short, Thick Neck: No Thyromental Distance: > or= 3.5 Finger Breadths Oral Cavity: + WNL Mallampati Class: III ASA: ASA3 Procedure Planning Contraindications for Sedation: none Current Medications Reviewed: Yes Notes The planned sedation has been discussed with the patient. Informed Consent was obtained. I have identified the patient, determined the appropriateness of sedation and have assessed the patient immediately prior to the procedure. All medicine(s) and interventions are by my order.
--- NOTE | 2018-12-03 10:49 | Cardiac Catheterization ---
Cardiac Cath Procedure: Brief Procedure Date December 03, 2018 Pre-Procedure Diagnosis Pre-Procedure Diagnosis: Non STEMI and Angina AUC Score AUC Score: 8 Post-Procedure Diagnosis Post-Procedure Diagnosis: Severe CAD Procedure(s) Performed Procedure(s) Performed: Coronary Angiography and Left Heart Cath Lpn Cma Theo Villanueva MD Estimated Blood Loss Estimated Blood Loss: 5cc Medication(s) Medication(s): Fentanyl, Heparin, Metoprolol, Nicardipine, Nitroglycerin and Versed Preliminary Findings distal left main coronary disease, mid LAD stenosis. NO disease in LCx. Moderate distal RCA disease. Normal LVEDP Recommendations Recommendations: CABG Specimens Specimens: None Procedural Complication(s) None Disposition PCU
[2018-12-03] MEDS ORDERED: SODIUM CHLORIDE 0.9% 1000ML 1,000 ML IV SCH (11:00)
--- NOTE | 2018-12-03 12:07 | Cardiology Consultation ---
Date of Consultation December 03, 2018 Assessment & Plan (1) Non-STEMI (non-ST elevated myocardial infarction): Patient did have very mild elevation is cardiac biomarkers. The trajectory of his markers coincides well with the development of his symptoms earlier in the day. His symptoms may have been progressive over the past few weeks. He Did not report a prolonged episode of chest discomfort. He has not had symptoms at rest. He has preserved LV systolic function without significant valvular disease and no regional wall motion abnormalities to suggest old infarct. We discussed the options for evaluation and I recommended coronary angiography and possible intervention. We discussed the risks and benefits of this approach and also discussed alternatives. He will be maintained on a heparin infusion. He will continue aspirin administration. We will add a beta-kelton to his medical regimen and high-dose atorvastatin. Plan for cardiac catheterization this morning. (2) Aortic regurgitation: Mild on echocardiography. There is not appear to be an urgent need for intervention. This can be followed over time. (3) Aortic root dilation: Mild. Follow this over time. He has some mildly elevated blood pressures here in the hospital. Perhaps addition of a beta-kelton to his medical regimen while. History of Present Illness Reason for Consultation: Chest pain Requesting Physician: Osbaldo Attending Physician: Ashly Montoya MD History of Present Illness The patient is a 78-year-old gentleman without a known history of cardiac disease who has been experiencing symptoms exertional chest pressure. Patient states that several weeks ago he began to experience a pressure and aching sensation in his upper chest with activity. He rides a bicycle regularly, both stationary and outdoors. He states that with this type of activity he will have this symptom involving both left and right aspects of the upper chest. Generally, he will discontinue his activity in the symptoms resolved within a minute or 2. He does not recall associated breathing difficulty. He has not had pleuritic chest pain. He has not had symptoms at rest. On the day of admission the patient went out for a vigorous walk and he began to experience the symptoms. Again, they resolve quickly with discontinuation of activity but he contacted his primary care physician and was advised to go to the emergency room. He did not have symptoms of emergency room but did have elevated cardiac biomarkers and was admitted for observation. In general, he is a very active individual who was accustomed to significant exertion. He does not report limiting dyspnea or chest discomfort leading up to the development of these recent symptoms. He has not had dizziness or lightheadedness. He cannot recall suffering a syncopal episode. He denies orthopnea or paroxysmal nocturnal dyspnea. He has not noticed any swelling in his lower extremities. He denies any sense of palpitation or racing heartbeat. Recently, the patient had some changes in his memory and some mood disturbance. An outpatient evaluation revealed him to have evidence Lyme disease and he was treated with a 2 week course of doxycycline. According to his was present for the interview today his mood disturbance resolved entirely, but he still has an element of forgetfulness. He is scheduled to see a neurologist in the near future. Allergies Allergy/AdvReac Type Severity Reaction Status Date / Time No Known Allergies Allergy Unverified 12/02/18 11:10 Home Medications Home Medications Medication Instructions Recorded Confirmed Type cholecalciferol (vitamin D3) 0 unit PO PM 12/02/18 12/02/18 History [Vitamin D3] cyanocobalamin (vitamin B-12) 0 mcg PO PM 12/02/18 12/02/18 History [Vitamin B-12] dutasteride 0.5 mg PO PM 12/02/18 12/02/18 History tamsulosin 0.4 mg PO PM 12/02/18 12/02/18 History vit A,C and R-kkmiyd-naekajxj 1 tab PO PM 12/02/18 12/02/18 History [Ocuvite with Lutein] Patient History Medical History Pyelonephritis (Chronic) Dysuria (Resolved) BPH (benign prostatic hyperplasia) History of wisdom tooth extraction Lyme disease Family History Other Family history non-contributory Social History Preferred Language: Wolof Communication Ability: Effective 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 Mood and affect appeared normal. He answered all questions appropriately. HEENT: Pupils are equal and reactive to light and accommodation. Extraocular movements are intact. The sclerae are anicteric. Neuro: Cranial nerves intact Neck: Patient's neck is supple. He has palpable carotid pulses bilaterally without bruits on auscultation. There is no evidence of jugular venous distention. The thyroid is not enlarged. Lungs: Clear to auscultation bilaterally. He has good air movement without use of accessory muscles. No rales wheezes or rhonchi. Cardiac: Heart demonstrates a regular rate and rhythm. Normal S1 and S2. No murmurs on examination. Pulses: The patient has palpable radial pulses bilaterally that are equal in intensity Extremities: There was no evidence of hypoperfusion. There is no cyanosis or clubbing. There is no edema. Skin: I did not appreciate any rashes on examination today. Results & Data Vital Signs (Past 12 Hours) Vital Signs Temp Pulse Resp BP BP Pulse Ox 12/03/18 11:42 72 18 158/76 H 96 12/03/18 11:34 36.6 C 57 L 18 146/65 H 96 12/03/18 11:12 64 18 96 12/03/18 10:57 57 L 16 91/53 L 97 12/03/18 07:20 36.7 C 58 L 18 134/69 97 12/03/18 03:33 36.5 C 55 L 16 126/62 97 Laboratory Results Abnormal Lab Results 12/02/18 12/02/18 12/02/18 10:30 12:01 18:51 WBC RBC Hgb Hct MCV MCH MCHC RDW Std Deviation RDW Coeff of Jessica Plt Count MPV Immature Gran % (Auto) Neut % (Auto) Lymph % (Auto) [place] % (Auto) Eos % (Auto) Baso % (Auto) Immature Gran # (Auto) Neut # (Auto) Lymph # (Auto) [place] # (Auto) Eos # (Auto) Baso # (Auto) APTT 27.5 PTT Ratio 1.0 Sodium Potassium Chloride Carbon Dioxide Anion Gap BUN Creatinine Est Cr Clr Drug Dosing Est GFR ( Amer) Est GFR (Non-Af Amer) BUN/Creatinine Ratio Glucose Estimat Average Glucose Hemoglobin A1c Calcium Troponin I 0.137 H* 0.389 H* Triglycerides Cholesterol LDL Cholesterol, Calc VLDL Cholesterol, Calc HDL Cholesterol Cholesterol/HDL Ratio 12/02/18 12/02/18 12/03/18 20:15 20:44 00:17 WBC RBC Hgb Hct MCV MCH MCHC RDW Std Deviation RDW Coeff of Jessica Plt Count MPV Immature Gran % (Auto) Neut % (Auto) Lymph % (Auto) [place] % (Auto) Eos % (Auto) Baso % (Auto) Immature Gran # (Auto) Neut # (Auto) Lymph # (Auto) [place] # (Auto) Eos # (Auto) Baso # (Auto) APTT Cancelled 37.9 H PTT Ratio Cancelled 1.4 Sodium Potassium Chloride Carbon Dioxide Anion Gap BUN Creatinine Est Cr Clr Drug Dosing Est GFR ( Amer) Est GFR (Non-Af Amer) BUN/Creatinine Ratio Glucose Estimat Average Glucose Hemoglobin A1c Calcium Troponin I 0.297 H* Triglycerides Cholesterol LDL Cholesterol, Calc VLDL Cholesterol, Calc HDL Cholesterol Cholesterol/HDL Ratio 12/03/18 12/03/18 12/03/18 03:45 03:45 03:45 WBC 7.01 RBC 4.86 Hgb 15.4 Hct 43.3 MCV 89.1 MCH 31.7 MCHC 35.6 RDW Std Deviation 41.7 RDW Coeff of Jessica 12.9 Plt Count 194 MPV 11.1 H Immature Gran % (Auto) 0.3 Neut % (Auto) 61.9 Lymph % (Auto) 26.7 [place] % (Auto) 6.3 Eos % (Auto) 4.4 Baso % (Auto) 0.4 Immature Gran # (Auto) 0.02 Neut # (Auto) 4.34 Lymph # (Auto) 1.87 [place] # (Auto) 0.44 Eos # (Auto) 0.31 Baso # (Auto) 0.03 APTT PTT Ratio Sodium 140 Potassium 4.0 Chloride 108 H Carbon Dioxide 27 Anion Gap 5.0 BUN 17 Creatinine 1.17 Est Cr Clr Drug Dosing 53.3 Est GFR ( Amer) 69.3 Est GFR (Non-Af Amer) 59.8 BUN/Creatinine Ratio 14.3 Glucose 104 H Estimat Average Glucose 100 Hemoglobin A1c 5.1 Calcium 8.7 Troponin I Triglycerides 57 Cholesterol 252 H LDL Cholesterol, Calc 179 VLDL Cholesterol, Calc 11 HDL Cholesterol 62 Cholesterol/HDL Ratio 4 12/03/18 03:45 WBC RBC Hgb Hct MCV MCH MCHC RDW Std Deviation RDW Coeff of Jessica Plt Count MPV Immature Gran % (Auto) Neut % (Auto) Lymph % (Auto) [place] % (Auto) Eos % (Auto) Baso % (Auto) Immature Gran # (Auto) Neut # (Auto) Lymph # (Auto) [place] # (Auto) Eos # (Auto) Baso # (Auto) APTT 93.7 H* PTT Ratio 3.5 Sodium Potassium Chloride Carbon Dioxide Anion Gap BUN Creatinine Est Cr Clr Drug Dosing Est GFR ( Amer) Est GFR (Non-Af Amer) BUN/Creatinine Ratio Glucose Estimat Average Glucose Hemoglobin A1c Calcium Troponin I Triglycerides Cholesterol LDL Cholesterol, Calc VLDL Cholesterol, Calc HDL Cholesterol Cholesterol/HDL Ratio Diagnostic Findings Chest x-ray obtained at the time admission not reveal any acute cardiopulmonary disease Echocardiogram performed yesterday revealed preserved LV systolic function without wall motion abnormality. Stage I diastolic dysfunction. Mild aortic regurgitation and mild dilation of the aortic root measured 4.1 centimeters.
[2018-12-03 12:15] LABS: Partial Thromboplastin Ratio 2.4
--- NOTE | 2018-12-03 12:19 | Discharge Summary ---
Date of Service December 03, 2018 Admission HPI Per Admitting Provider Raul Galvan is a pleasant 78yo C male with history of BPH presenting with chest pain. Patient is quite active, frequently rides his bike and goes for brisk walks. He developed CP 4-5 days ago which occurred with exertion. Pain is described as substernal aching/soreness, 2-3/10 in severity and relieved with rest. Discomfort is nonradiating, no associated nausea/vomiting/dizziness/diaphoresis/palpitations but does feel "woozy". No symptoms at rest but discomfort has been occurring with less exertion than before, he has limited his activity as a result. No prior history of CAD. No known coronary risk factors or family history. No prior stress testing or cardiac cath ER Course: ASA 324, Heparin gtt, NSS Principal Diagnosis Severe CAD Discharge Exam Constitutional WD/WN, vitals as above Eyes + anicteric sclerae ENMT external ear and nose normal, oropharynx normal Neck trachea midline, no thyromegaly Respiratory normal respiratory effort, lungs clear to auscultation Cardiovascular Rate/Rhythm: regular rate and regular rhythm Heart Sounds: no murmur Vessels: normal peripheral pulses; no JVD, no carotid bruit, no abdominal aortic bruit and no renal bruit Extremities: normal capillary refill; no calf tenderness and no edema Gastrointestinal (Abdomen) normal bowel sounds, soft, nontender, no hepatosplenomegaly Musculoskeletal Extremities: extremities normal to inspection; no cyanosis and no clubbing Skin no rashes, warm and dry Neurologic moves all extremities and awake; no focal motor deficits Psychiatric Orientation: alert and oriented x 3 Eye Contact: good eye contact Affect: + anxious affect Discharge Data Allergies Allergy/AdvReac Type Severity Reaction Status Date / Time No Known Allergies Allergy Unverified 12/02/18 11:10 Consultations Cardiology Procedures Performed Operation Date: 12/03/18 10:00 Actual Procedures p Cath, Left with Cors and Vent - Chinedu Villanueva MD s Cineradiography w/Routine Exam - Chinedu Villnaueva MD Ordered Studies 12/02/18 11:08 CT head/brain wo con Stat 12/03/18 09:38 CL Cath Imgs for PACS use only Routine Chest xray-negative ECHO-preserved EF, mild AI Hospital Course (1) Chest pain: Patient presented with exertional chest discomfort, relieved with rest, occurring over the last few weeks. Elevated troponin at 0.137/0.389/0.297, EKG with no acute changes. Symptoms sound most consistent with unstable angina. -he was admitted to PCU and monitored on telemetry, had no recurrence of chest pain -was started on a Heparin gtt, ASA, high intensity statin -echocardiogram showed preserved LVEF, no wall motion abnormalities, and with mild AI with mild aortic root dilatation -Cardiology consultation - appreciated--> had left heart cath which showed distal left main coronary disease, mid LAD stenosis. NO disease in LCx. Moderate distal RCA disease. Normal LVEDP. -needs eval for CABG--> Dr. Villanueva discussed the case with Dr. Doyle at [facility] who accepts the pt in transfer for eval for CABG -lipids very high with TChol 252, LDL 179, HDL 61 -Nitro and Morphine PRN -continue Aspirin 81mg po daily, heparin gtt and NS at 70mLs/hr on transfer -added low dose metoprolol tartrate 12.5mg po bid -has resting bradycardia in the mid -high 50s prior to initiation of beta kelton (2) CAD (coronary artery disease), [place] coronary artery: as above -adding on ASA, statin beta kelton -going for eval for CABG (3) BPH (benign prostatic hyperplasia): Chronic. No symptoms at present -Continue Tamsulosin and Dutasteride (4) Aortic root dilation: noted on ECHO, needs BP control (5) Aortic regurgitation: mild on ECHO -follow over time (6) Non-STEMI (non-ST elevated myocardial infarction): as above (7) Hyperlipidemia: lipids high as above -starting high intensity statin (8) DVT prophylaxis: heparin gtt Dispo-transfer to [facility] for CABG eval Care discussed at length with Cardiology, patient, and his at bedside Total Time Total Time Spent Total Time Spent (In Minutes): >30 min Total Time Includes: Examination of the Patient, Discharge Planning, Medication Reconciliation and Communication With Other Providers (Cardiology) Discharge Plan Discharge Items Patient Disposition: Transfer Acute Care Hospital Reason For Visit: CHEST PAIN Discharge Diagnosis: Severe CAD Condition: Fair Discharge Goals: Decrease discomfort, Diagnostic testing, Learn about illness and Therapeutic intervention Activity: As commented below Lifting: None Exercise/Sports: Rest today Non-emergency contact: Primary Care Provider and Clerk Analyst Call non-emergency contact if: you have any medication questions, your symptoms worsen, your pain is not controlled, your pain is worsening, your pain is unusual for you and your pain is concerning for you Follow-up/Referrals: Warner Turner [Primary Care Provider] - Diet: Heart Healthy Addtl Provider Instructions: Transferred to [facility] Prescriptions: New atorvastatin 40 mg Tablet 80 mg PO QAM Qty: 30 RF: 0 nitroglycerin [Nitrostat] 0.4 mg Tablet, Sublingual 0.4 mg sublingual UD PRN (Reason: chest pain) Qty: 30 RF: 0 metoprolol tartrate 25 mg Tablet 12.5 mg PO BID Qty: 30 RF: 0 aspirin [Ecotrin Low Strength] 81 mg Tablet,Delayed Release (Dr/Ec) 81 mg PO DAILY Qty: 30 RF: 0 Continued cyanocobalamin (vitamin B-12) [Vitamin B-12] 1,000 mcg Tablet Extended Release PO PM RF: 0 tamsulosin 0.4 mg capsule 0.4 mg PO PM RF: 0 dutasteride 0.5 mg capsule 0.5 mg PO PM RF: 0 Ocuvite with Lutein 1,000 unit-200 mg-60 unit-2 mg Tablet 1 tab PO PM RF: 0 cholecalciferol (vitamin D3) [Vitamin D3] 1,000 unit Tablet PO PM RF: 0 Stand-Alone Forms: [facility] Discharge Orders: Discharge Order (Routine); Ordered 12/03/18 Ordered By: Ashly Montoya Admission Data Admit Date/Time: 12/02/18 14:57 Attending Provider: Ashly Montoya Admit Provider: Blank Roblero Primary Care Provider: Warner Turner Other Providers: Blank Roblero ; Chinedu Villanueva Service: Telemetry Other Pending Studies at Discharge: No
[2018-12-03 12:25] LABS: Partial Thromboplastin Time 66.3 Seconds (21.0-31.0)
[2018-12-03] MEDS: METOPROLOL TARTRATE 25 MG TAB PO SCH ×2 (14:10→20:34)
--- NOTE | 2018-12-03 15:31 | Cardiac Catheterization ---
Date of Service December 03, 2018 Cardiac Cath Report Cardiac Cath Report Procedure performed: Left heart catheterization, coronary angiography Staff substation operator conversion: Theo Villanueva MD Indication: The patient is a 78-year-old gentleman without a history of coronary disease who presented with symptoms of exertional chest pain and elevated cardiac biomarkers. Procedure in detail: The patient was informed of the risks benefits and alternatives to the intended procedure, he understood such and wished to proceed. He was taken to the cardiac catheterization suite in a fasting state. Conscious sedation was administered per protocol and the patient was monitored electrocardiographically throughout today's procedure. The right wrist area was prepped and draped in usual sterile fashion. This area was anesthetized using subcutaneous administration of a lidocaine solution. The right radial artery was then accessed using Seldinger technique, and a arterial sheath was placed at this site over a guidewire. The sheath was used to facilitate passage of the cardiac catheter for coronary angiography and left heart catheterization. Coronary angiogram was then obtained in multiple orthogonal views prior to removal of the catheter. At the conclusion of the procedure the sheath was removed and hemostasis was achieved at the access site using manual pressure. The patient tolerated procedure well, there were no immediate complications. Equipment used: 5 Spanish tiger 4 Findings: Opening aortic pressure: 97/56 millimeters of mercury Left ventricular pressure: 124/14 millimeters of mercury Left ventricular end-diastolic pressure: 16 millimeters of mercury Closing aortic pressure: 120/66 millimeters of mercury Coronary angiography: Left main: Left main coronary artery was normal at its origin but had approximately 90% stenosis immediately prior to the bifurcation into the LAD and left circumflex arteries. Left anterior descending: Left anterior descending was a large 1st diagonal branch, a medium 2nd diagonal and small 3rd diagonal branch. There is appro ximately 60-70% stenosis between D1 and D2. There is a tubular 30% stenosis just after D2. There is approximately 70% stenosis just after the takeoff of T3. Left circumflex: Left circumflex artery was a nondominant vessel. It produced a large 1st OM branch with a 50% stenosis in its proximal portion. It produced a large 2nd obtuse marginal without significant disease. He had had a small 3rd obtuse marginal branch with a 50% stenosis in its proximal portion. Right coronary artery: Right coronary artery was a dominant vessel producing a posterior descending artery. He had luminal regularities throughout its course. There was a 30% stenosis in its proximal portion. There was a 30% stenosis prior to the bifurcation of the PL and PDA branches. There is a 50-60% stenosis at the takeoff of the posterior descending artery. Impression: Obstructive coronary disease involving the distal left main and mid to distal left anterior descending artery Right-dominant coronary system Normal left ventricular pressures No evidence of aortic stenosis
[2018-12-03] MEDS: TAMSULOSIN HCL 0.4 MG CAP PO SCH (20:30)
[2018-12-03] MEDS: Heparin Adult LOW DOSE Wt-Based Dextrose 5% 25,000 units/500 mL IV SCH (20:37)
== END 2018-12-03 21:36 | disposition short-term general hospital (02) | DRG 282 ==
LOC: ED 10:10 → 2S 10:10 → SUATTDRO 14:57 → 2S 16:03